=== PATIENT | male | born 1980 | race Two or more races ===

== ENCOUNTER 2020-12-15 14:35 | Emergency (ER) | payer OTHER, SELFPAY ==
[~2020-12-15] VITALS: Ht 182.9 cm; Wt 103.0 kg
[2020-12-15 15:16] LABS: BASOPHILS % (AUTO) 1 % (0-1); EOSINOPHILS % (AUTO) 1 % (1-7); LYMPHOCYTES % (AUTO) 23 % (22-44); MD NO; MEAN CORPUSCULAR HEMOGLOBIN 32.4 pg (27.5-34.5); MEAN PLATELET VOLUME 7.5 fL (7.4-10.4); MONOCYTES % (AUTO) 8 % (2-9); NEUTROPHILS % (AUTO) 68 % (42-75); PLATELET COUNT 309 x10^3/uL (130-400); RED BLOOD COUNT 5.32 x10^6/uL (4.38-5.82); RED CELL DISTRIBUTION WIDTH 12.9 % (9.4-14.8)
[2020-12-15 15:25] LABS: ANION GAP 7 mmol/L (5-15); CALCIUM 9.6 mg/dL (8.5-10.1); CHLORIDE 105 mmol/L (98-107)
[2020-12-15 15:28] LABS: ALANINE AMINOTRANSFERASE 62 U/L (12-78); ALKALINE PHOSPHATASE 63 U/L (45-117); BILIRUBIN,TOTAL 1.2 mg/dL (0.2-1.0); CREATININE 1.13 mg/dL (0.7-1.3); TOTAL PROTEIN 8.7 g/dL (6.4-8.2)
[2020-12-15] MEDS ORDERED: SODIUM CHLORIDE FLUSH 10ML SYR IVF ONE (16:00)
[2020-12-15] MEDS ORDERED: SODIUM CHLORIDE 0.9% 1,000ML IVBOLUS ONE (16:00)
[2020-12-15 16:15] LABS: TROPONIN I < 0.015 ng/mL (0.000-0.045)
--- NOTE | 2020-12-15 17:11 | NUR ---
PT REC'VD DICHARGE INSTRUCTIONS AND EDUCATION. PT HAD NO FURTHER QUESTIONS.
[2020-12-15 17:12] VITALS: BP 143/99
--- NOTE | 2020-12-15 17:26 | NUR ---
PT AMBULATED TO WA AREA, STEADY GAIT
== END 2020-12-15 17:28 | disposition home or self-care (01) ==
LOC: ED 17:20
DX: R53.1 Weakness (principal); F15.10 Other stimulant abuse, uncomplicated; R51.9 Headache, unspecified; R00.0 Tachycardia, unspecified; R05 Cough
CPT/HCPCS: 36415; 71045; 80053; 83690; 84484; 85025; 93005; 96360; 99285; J7030